=== PATIENT | female | born 1975 | race Caucasian/White ===

== ENCOUNTER 2021-04-19 13:18 | Inpatient (IN) ==
[2021-04-19] MEDS ORDERED: IOPAMIDOL 100 ML BOTTLE IV ONE (13:19)
[2021-04-19] MEDS ORDERED: ONDANSETRON 4 MG/2 ML VIAL IV ONE (14:37)
[2021-04-19] MEDS ORDERED: morphine 2 MG/ML VIAL IV PRN (14:37)
[2021-04-19] MEDS ORDERED: 0.9 % SODIUM CHLORIDE 1,000 ML IV ONE (14:37)
[2021-04-19] MEDS ORDERED: KETOROLAC 30 MG/ML VIAL IV ONE (14:37)
[2021-04-19 15:29] LABS: Hematocrit 34.7 % (36.0-48.0); Hemoglobin 11.7 g/dL (12.0-15.0); Mean Cell Volume 90.4 fL (80.0-100.0); Mean Corpuscular HGB Conc 33.7 g/dL (31.0-36.0); Mean Platelet Volume 10.3 fL (7.4-10.4); Platelet Count 169 K/mcL (140-440); RBC 3.84 M/mcL (4.00-5.20); Red Cell Distribution Width 14.1 % (11.5-14.5); WBC 12.6 K/mcL (4.5-11.0)
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
[2021-04-19 15:46] LABS: ALT/SGPT 23 U/L (<40); AST/SGOT 28 U/L (<32); Albumin 3.3 gm/dL (3.2-5.2); Alkaline Phosphatase 101 U/L (39-117); Bilirubin,Total 0.3 mg/dL (0.1-1.0); Blood Urea Nitrogen 24 mg/dL (6-20); Calcium 8.6 mg/dL (8.6-10.4); Carbon Dioxide 26 mmol/L (22-30); Chloride 88 mmol/L (96-108); Globulin 3.4 gm/dL (2.2-3.7); Glomerular Filtration Rate 29; Glucose 205 mg/dL (70-105)
[2021-04-19 16:02] LABS: Lymphocytes % 3 % (15-49); Monocytes % (Manual) 7 % (1-12); Platelet Estimate NORMAL (Normal); RBC Morphology NORMAL (Normal); Segmented Neutrophils % 90 % (38-78)
--- NOTE | 2021-04-19 16:13 | Cat Scan Report ---
INDICATION: non-specific abdominal pain in a DD patient COMPARISON: Previous examination dated 07/20/2019 TECHNIQUE: Axial images were obtained through the abdomen and pelvis. Sagittally and coronally reformatted images. 80 mL Isovue 370 injected intravenously. Oral contrast material was not administered FINDINGS: Lung bases:Mild bibasilar pulmonary parenchymal density consistent with atelectasis. No parenchymal consolidation. No focal mass. There is no pleural fluid or pericardial fluid Liver:Negative. No focal intrahepatic mass. No focal abnormality. Liver contour is smooth. No evidence for cirrhosis Gallbladder, bilary:No calcified gallstones. No gallbladder wall thickening. No dilated intra or extrahepatic bile ducts. Spleen:No splenomegaly. Normal enhancement of splenic and portal veins. Pancreas:No pancreatic mass. No peripancreatic abnormality Adrenal glands:Negative Kidneys, ureters, bladder: Negative left kidney. No solid or cystic mass. No hydronephrosis. No obstructing or nonobstructing calculi. Right kidney has an abnormal appearance consistent with edema. No focal mass. There is mild perinephric stranding. Appearance is consistent with pyelonephritis. No focal abnormality. No renal or perinephric abscess. There is no obstruction. No hydronephrosis. No calculus. There is no hydroureter. No ureteral stone No bladder calculi or detectable mass Gastrointestinal:No detectable colonic mass. There is no diverticulitis. Small bowel is negative. No mechanical small bowel obstruction. Stomach and duodenum are unremarkable Appendix: The appendix is Vascular:Negative abdominal aorta. There is calcification of the superior mesenteric artery. No detectable stenosis or occlusion. Inferior mesenteric artery is calcified but patent Lymphatic:No retroperitoneal or mesenteric adenopathy Mesentery, peritoneum: No free intraperitoneal fluid. No mesenteric or retroperitoneal mass. No intra-abdominal abscess. Reproductive:Uterus is anteflexed. No adnexal mass Musculoskeletal:No lumbar compression fractures. Sacrum and pelvis are negative. No hip fracture. There is a small inguinal hernia containing mesenteric fat. Hernia measures 1.2 cm in cross-sectional diameter IMPRESSION: 1. Findings consistent with right hilar nephritis. No focal abscess or perinephric abnormality. No hydronephrosis. 2. Small fat-containing umbilical hernia 3. Atherosclerotic calcification 4. Bibasilar pulmonary parenchymal density consistent with atelectasis The exam was performed using radiation dose optimization techniques including, but not limited to, automated exposure control, adjustment of the mA and/or kV according to patient size and use of iterative reconstruction technique. Interpreted and Authenticated by: Herrera Whitfield 04/19/21
[2021-04-19] MEDS ORDERED: cefTRIAXone 1 GM VIAL IV ONE (16:49)
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
[2021-04-19 19:03] LABS: Appearance,Urine CLOUDY (Clear); Bilirubin,Urine Negative (Negative); Color,Urine Yellow; Culture Indicated,Urine yes; Glucose,Urine (UA) Negative (Negative); Ketones,Urine Negative (Negative); Leukocyte Esterase,Urine 250 /ug (Negative); Nitrate,Urine Negative (Negative); Protein,Urine 30 mg/dL (Negative); Specific Gravity,Urine 1.056 (1.000-1.035); Urine Budding Yeast FEW /hpf; Urine RBC 24 /hpf (0-3); Urine Squamous Epithelial Cell 0 /hpf (0-4); Urine WBC 62 /hpf (0-4); Urobilinogen,Urine Negative
[2021-04-19] MEDS ORDERED: POLYETHYLENE GLYCOL 3350 17 GM PACKET PO PRN (19:25)
[2021-04-19] MEDS ORDERED: ACETAMINOPHEN 650 MG/65 ML BAG IV PRN (19:25)
[2021-04-19] MEDS ORDERED: MELATONIN 3 MG TABLET PO PRN (19:25)
[2021-04-19] MEDS ORDERED: POTASSIUM CHLORIDE 40 MEQ in DEXTROSE 5% IN WATER 500 ML IV PRN (19:25)
[2021-04-19] MEDS ORDERED: FAMOTIDINE 20 MG TABLET PO PRN (19:25)
[2021-04-19] MEDS ORDERED: BISACODYL 10 MG SUPP.RECT PR PRN (19:25)
[2021-04-19] MEDS ORDERED: ACETAMINOPHEN W/CODEINE #3 1 TABLET PO PRN (19:25)
[2021-04-19] MEDS ORDERED: DEXTROSE 31 GM ORAL.SUSP PO PRN (19:25)
[2021-04-19] MEDS ORDERED: ONDANSETRON 4 MG/2 ML VIAL IV PRN (19:25)
[2021-04-19] MEDS ORDERED: HYDROmorphone 0.5 MG/0.5 ML SYRINGE IV PRN (19:25)
[2021-04-19] MEDS ORDERED: POTASSIUM CHLORIDE 20 MEQ PACKET PO PRN (19:25)
[2021-04-19] MEDS ORDERED: ONDANSETRON 4 MG ODT TABLET SL PRN (19:25)
[2021-04-19] MEDS ORDERED: DEXTROSE 50% 50 ML VIAL IV PRN (19:25)
[2021-04-19] MEDS ORDERED: MAGNESIUM SULFATE 2 GM/50 ML BAG IV PRN (19:25)
[2021-04-19] MEDS ORDERED: 0.9 % SODIUM CHLORIDE 1,000 ML IV SCH (19:25)
[2021-04-19] MEDS: SENNOSIDES/DOCUSATE SODIUM 1 TAB TABLET PO SCH (21:16)
[2021-04-19] MEDS: DOCUSATE SODIUM 100 MG CAPSULE PO SCH (21:16)
[2021-04-19] MEDS: DIVALPROEX SODIUM 250 MG TABLET PO SCH (21:16)
[2021-04-19] MEDS: HEPARIN 5,000 UNIT/ML VIAL SQ SCH (21:16)
[2021-04-19] MEDS: FLUTICASONE HFA 110MCG INHALER INH SCH (21:17)
[2021-04-19] MEDS: INSULIN LISPRO 1 UNIT/0.01 ML UNIT SQ SCH (21:17)
[2021-04-19] MEDS: 0.9 % SODIUM CHLORIDE 10 ML SYRINGE IV SCH (21:19)
[2021-04-19] MEDS: 0.9 % SODIUM CHLORIDE 1,000 ML IV SCH (21:34)
[2021-04-20] MEDS: 0.9 % SODIUM CHLORIDE 10 ML SYRINGE IV SCH ×3 (05:54→20:47)
[2021-04-20] MEDS: INSULIN LISPRO 1 UNIT/0.01 ML UNIT SQ SCH ×4 (07:37→20:44)
[2021-04-20] MEDS: OMEPRAZOLE 20 MG CAPSULE PO SCH (08:19)
[2021-04-20] MEDS: PIOGLITAZONE 15 MG TABLET PO SCH (08:19)
[2021-04-20] MEDS: DIVALPROEX SODIUM 250 MG TABLET PO SCH ×3 (08:19→20:43)
[2021-04-20] MEDS: LORATADINE 10 MG TABLET PO SCH (08:19)
[2021-04-20] MEDS: ARIPIPRAZOLE 5 MG TABLET PO SCH (08:19)
[2021-04-20] MEDS: sitaGLIPtin 100 MG TABLET PO SCH (08:19)
[2021-04-20] MEDS: MULTIVIT,THER IRON,CA,FA & MIN 1 TABLET PO SCH (08:19)
[2021-04-20] MEDS: ESCITALOPRAM 20 MG TABLET PO SCH (08:19)
[2021-04-20] MEDS: DOCUSATE SODIUM 100 MG CAPSULE PO SCH ×2 (08:20→20:43)
[2021-04-20] MEDS: cefTRIAXone 2 GM in DEXTROSE 5% IN WATER 50 ML IV SCH (08:40)
[2021-04-20] MEDS: HEPARIN 5,000 UNIT/ML VIAL SQ SCH ×2 (08:40→20:43)
[2021-04-20 10:13] LABS: Basophils # (Auto) 0.02 K/mcL (0.00-0.20); Basophils % (Auto) 0.2 % (0.0-2.0); Eosinophils # (Auto) 0.03 K/mcL (0.00-0.70); Eosinophils % (Auto) 0.3 % (0.0-7.0); Hematocrit 36.6 % (36.0-48.0); Lymphocytes % (Auto) 5.6 % (15.0-49.0); Mean Corpuscular HGB Conc 32.8 g/dL (31.0-36.0); Mean Platelet Volume 10.3 fL (7.4-10.4); Monocytes # (Auto) 0.82 K/mcL (0.10-0.90); Monocytes % (Auto) 9.1 % (1.0-12.0); Neutrophils % (Auto) 84.8 % (38.0-78.0); Platelet Count 152 K/mcL (140-440); RBC 3.98 M/mcL (4.00-5.20); Red Cell Distribution Width 14.1 % (11.5-14.5)
[2021-04-20 10:41] LABS: ALT/SGPT 19 U/L (<40); AST/SGOT 25 U/L (<32); Albumin/Globulin Ratio 0.9 (1.0-2.3); Alkaline Phosphatase 120 U/L (39-117); Bilirubin,Direct < 0.2 mg/dL (0-0.3); Bilirubin,Total 0.2 mg/dL (0.1-1.0); Blood Urea Nitrogen 18 mg/dL (6-20); Calcium 8.4 mg/dL (8.6-10.4); Carbon Dioxide 23 mmol/L (22-30); Chloride 89 mmol/L (96-108); Globulin 3.5 gm/dL (2.2-3.7); Glomerular Filtration Rate 38; Glucose 220 mg/dL (70-105); Lactate Dehydrogenase 267 U/L (135-225); Phosphorous 2.2 mg/dL (2.5-4.5); Triglycerides 182 mg/dL (<150); Uric Acid 4.1 mg/dL (2.5-8.0)
[2021-04-20] MEDS ORDERED: NEUTRA PHOS 1 PACKET PO PRN (10:52)
[2021-04-20] MEDS: FLUTICASONE HFA 110MCG INHALER INH SCH ×2 (12:04→20:43)
--- NOTE | 2021-04-20 12:24 | Internal Med Progress Note ---
SUBJECTIVE Subjective Patient information: Note initiated : 04/20/21 at 12:17 pm Service Date, if different from initiated Date: [] Patient: Inés Gardner a 45 y/o F admitted on 04/19/21 for Abdominal Pain. Chief Complaint: [] Interval history: History of present illness: Ms. Gardner is a 45 year old F with a history of developmental delay/DM type II, recurrent UTIs who lives along with her roommate and receives caregiver help from an agency. She has been doing well until last Thursday started experiencing weakness along with abdominal pain for which she was evaluated at PCP office. After initial work-up she was discharged on Bactrim. Her symptoms continue to get worse with increasing weakness, fever abdominal pain and was directed by PCP office again to the ER today. Initial work-up was consistent with acute pyelonephritis on imaging. Elevated creatinine at 2. Elevated white count/fever 101/sodium 127. Hospital service was consulted for admission. At the time of my evaluation patient is aler and able to answer most the questi on. Her abdominal discomfort is improved. She endorsed history as above. She is a poor historian in the background setting of developmental mental delay. She however denies diarrhea, chest pain, lightheadedness, dizziness, cough 6/5-patient doing well. No overnight events. No concerns per staff. Abdominal pain much improved. Resting comfortably. On antibiotic coverage. Improved sepsis/endorgan dysfunction including downtrending creatinine at 1.4.White count 9 sodium 124, urine cultures pending. Constitutional Vitals: Vital Signs Temp Pulse Resp BP Pulse Ox 98.7 F 93 H 16 113/72 93 04/20/21 11:47 04/20/21 11:47 04/20/21 11:47 04/20/21 11:47 04/20/21 11:47 Period Temp Pulse Resp BP Sys/[place] Pulse Ox Last 24 Hr 97.5 F-99.2 F 76-99 16-18 97-142/65-107 90-98 Intake and Output 04/19/21 04/20/21 04/20/21 21:59 05:59 13:59 Intake Total 1000 120 480 Output Total 1100 1200 Balance 1000 -980 -720 Weight 107.275 kg 107.275 kg Patient Weight 04/21/21 05:59 Weight 107.275 kg alert, nonlabored breathing, no anxiety, nontender nondistended abdomen Intake & Output: Intake & Output 04/19/21 04/20/21 04/20/21 21:59 05:59 13:59 Intake Total 1000 120 480 Output Total 1100 1200 Balance 1000 -980 -720 Weight 107.275 kg 107.275 kg Intake: IV 1000 Sodium Chloride 0.9% 1,000 ml @ 1000 Wide Open IV [facility] Rx#: [id number] Oral 120 480 Output: Void Amount 1100 800 Urine/Stool Mix 400 Other: Meal Breakfast Percent of Meal Consumed bites Feeding Ability Assist with Tray Set Up Urine Appearance Cloudy Cloudy Urine Color Dark Yellow Bright Yellow Urine Odor Strong Stool Size Moderate Stool Color Brown Stool Consistency Soft Formed # Bowel Movements 2 # of times incontinent of 1 Bowels OBJ DATA Labs CBC & Chem 7: 04/20/21 09:26 04/20/21 09:26 Labs: Abnormal Lab Results 04/20/21 04/20/21 04/20/21 09:26 09:26 09:26 WBC RBC 3.98 L Hgb Hct Neut % (Auto) 84.8 H Lymph % (Auto) 5.6 L Lymph # (Auto) 0.50 L Seg Neutrophils % Lymphocytes % Sodium 124 L Chloride 89 L BUN Creatinine 1.6 H Glucose 220 H Osmolality 278 L Calcium 8.4 L Phosphorus 2.2 L GGT 40 H Alkaline Phosphatase 120 H Lactate Dehydrogenase 267 H Albumin 3.0 L Albumin/Globulin Ratio 0.9 L Triglycerides 182 H Urine Appearance Urine Protein Ur Leukocyte Esterase Urine RBC Urine WBC Urine Yeast (Budding) 04/19/21 04/19/21 04/19/21 17:58 14:52 14:52 WBC 12.6 H RBC 3.84 L Hgb 11.7 L Hct 34.7 L Neut % (Auto) Lymph % (Auto) Lymph # (Auto) Seg Neutrophils % 90 H Lymphocytes % 3 L Sodium 127 L Chloride 88 L BUN 24 H Creatinine 2.0 H Glucose 205 H Osmolality Calcium Phosphorus GGT Alkaline Phosphatase Lactate Dehydrogenase Albumin Albumin/Globulin Ratio Triglycerides Urine Appearance Cloudy A Urine Protein 30 A Ur Leukocyte Esterase 250 A Urine RBC 24 H Urine WBC 62 H Urine Yeast (Budding) Few A Meds: Medications Acetaminophen (Acetaminophen 325 Mg Tablet) 650 mg PO Q6HP PRN PRN Reason: PAIN/FEVER > 101 Acetaminophen/Codeine Phosphate (Acetaminophen W/Codeine #3 1 Tablet) 2 tab PO Q6H PRN; Protocol PRN Reason: Pain Bisacodyl (Bisacodyl 10 Mg Supp.Rect) 10 mg [place] Q2-3DAYS PRN PRN Reason: Constipation Dextrose (Dextrose 50% 50 Ml Vial) 0 ml IV UD PRN PRN Reason: Hypoglycemia Diagnostic Test (Pha) (Accu-Chek 1 Each Strip) 1 each FS ACHS COUNT INCLUDES THE [facility] Last Admin: 04/20/21 12:04 Dose: 1 each Documented by: Divalproex Sodium (Divalproex Sodium 250 Mg Tablet) 250 mg PO TID COUNT INCLUDES THE [facility] Last Admin: 04/20/21 08:19 Dose: 250 mg Documented by: Docusate Sodium (Docusate Sodium 100 Mg Capsule) 100 mg PO BID COUNT INCLUDES THE [facility] Last Admin: 04/20/21 08:20 Dose: 100 mg Documented by: Escitalopram Oxalate (Escitalopram 20 Mg Tablet) 20 mg PO DAILY COUNT INCLUDES THE [facility] Last Admin: 04/20/21 08:19 Dose: 20 mg Documented by: Famotidine (Famotidine 20 Mg Tablet) 20 mg PO QHS PRN PRN Reason: Acid Reflux Fluticasone Propionate (Fluticasone Hfa 110mcg Inhaler) 1 puff INH BID COUNT INCLUDES THE [facility] Last Admin: 04/20/21 12:04 Dose: Not Given Documented by: Glucose (Dextrose 31 Gm Oral.Susp) 15 gm PO PRN PRN PRN Reason: Hypoglycemia Heparin Sodium (Porcine) (Heparin 5,000 Unit/Ml Vial) 5,000 unit SQ Q12 COUNT INCLUDES THE [facility] Last Admin: 04/20/21 08:40 Dose: 5,000 unit Documented by: Hydromorphone HCl (Hydromorphone 0.5 Mg/0.5 Ml Syringe) 0.25 - 0.5 mg IV Q4HP PRN; Protocol PRN Reason: Per Pain Protocol Acetaminophen (Ofirmev) 650 mg in 65 mls @ 130 mls/hr IV Q6HP PRN; Protocol PRN Reason: Per Pain Protocol/Fever > 101 Potassium Chloride 40 meq/ (Dextrose) 520 mls @ 130 mls/hr IV UD PRN PRN Reason: K+ = or < 3.5 Magnesium Sulfate (Magnesium Sulfate) 2 gm in 50 mls @ 50 mls/hr IV UD PRN PRN Reason: MG = or < 1.7 Sodium Chloride (Sodium Chloride 0.9%) 1,000 mls @ 50 mls/hr IV .Q20H COUNT INCLUDES THE [facility] Stop: 04/22/21 07:24 Last Admin: 04/19/21 21:34 Dose: 50 mls/hr Documented by: Sodium Chloride (Sodium Chloride 0.9%) 1,000 mls @ 0 mls/hr IV BOLUS COUNT INCLUDES THE [facility] Last Admin: 04/19/21 21:20 Dose: Not Given Documented by: Ceftriaxone Sodium 2 gm/ (Dextrose) 50 mls @ 100 mls/hr IV Q24H COUNT INCLUDES THE [facility]; Protocol Last Admin: 04/20/21 08:40 Dose: 100 mls/hr Documented by: Insulin Human Lispro (Insulin Lispro 1 Unit/0.01 Ml Unit) 0 unit SQ ACHS COUNT INCLUDES THE [facility]; Protocol Last Admin: 04/20/21 12:03 Dose: Not Given Documented by: Iron Carb/Multivit/Mushroom Grower/Folic Acid (Multivit,Ther Iron,Ca,Fa & Min 1 Tablet) 1 tab PO DAILY COUNT INCLUDES THE [facility] Last Admin: 04/20/21 08:19 Dose: 1 tab Documented by: Loratadine (Loratadine 10 Mg Tablet) 10 mg PO DAILY COUNT INCLUDES [facility] Last Admin: 04/20/21 08:19 Dose: 10 mg Documented by: Melatonin (Melatonin 3 Mg Tablet) 3 mg PO HSP PRN PRN Reason: Insomnia Omeprazole (Omeprazole 20 Mg Capsule) 40 mg PO DAILY COUNT INCLUDES [facility] Last Admin: 04/20/21 08:19 Dose: 40 mg Documented by: Ondansetron HCl (Ondansetron 4 Mg Odt Tablet) 4 mg SL Q4-6HP PRN; Protocol PRN Reason: Nausea And Vomiting Ondansetron HCl (Ondansetron 4 Mg/2 Ml Vial) 4 mg IV Q4-6HP PRN; Protocol PRN Reason: Nausea And Vomiting Pioglitazone HCl (Pioglitazone 15 Mg Tablet) 30 mg PO DAILY COUNT INCLUDES THE [facility] Last Admin: 04/20/21 08:19 Dose: 30 mg Documented by: Polyethylene Glycol (Polyethylene Glycol 3350 17 Gm Packet) 17 gm PO DAILYP PRN PRN Reason: Constipation Potassium Chloride (Potassium Chloride 20 Meq Packet) 40 meq PO DAILYP PRN PRN Reason: K+ < 3.5 Potassium/Phosphorus/Sodium (Neutra Phos 1 Packet) 2 packet PO DAILY PRN PRN Reason: PHOS <2.5 Last Admin: 04/20/21 12:03 Dose: 2 packet Documented by: Senna/Docusate Sodium (Sennosides/Docusate Sodium 1 Tab Tablet) 1 tab PO HS COUNT INCLUDES THE [facility] Last Admin: 04/19/21 21:16 Dose: 1 tab Documented by: Sitagliptin Phosphate (Sitagliptin 100 Mg Tablet) 100 mg PO QDAY COUNT INCLUDES THE [facility] Last Admin: 04/20/21 08:19 Dose: 100 mg Documented by: Sodium Chloride (0.9 % Sodium Chloride 10 Ml Syringe) 10 ml IV Q8 COUNT INCLUDES THE [facility] Last Admin: 04/20/21 05:54 Dose: Not Given Documented by: A/P Narrative A/P Narrative: * Severe sepsis with endorgan dysfunction-clinically improving with management per guidelines, improved endorgan dysfunction * A/c right pyelonephritis-continue antibiotic coverage and de-escalate based on sensitivities. * JAYME, secondary to sepsis endorgan dysfunction, creatinine downtrending. Avoid nephrotoxin * hyponatremia-127-> 124. Await urine serum osmolarity. Free water restriction. * Abd pain-on as needed opioids * DM II-continue CC diet/sliding scale insulin/sitagliptin * Anxiety disorder continue escitalopram/Depakote * Dev Delay with ataxia-fall risk * Full code Plan * De-escalate antibiotics based on culture sensitivities * Pre-existing medical mission management as above * Monitor renal function, avoid nephrotoxins * PT OT nutrition support Time Spent With Patient Time: Total time spent is greater than 50% in coordination of care (as documented) at patient's floor/unit and/or counseling patient: QUALITY VTE Deep Vein Thrombosis/Pulmonary Embolism Present on Admission: No
[2021-04-20 13:24] LABS: Sodium, Urine Random 10 mmol/L
[2021-04-20 13:29] LABS: Osmolality,Urine 444 mOSM/kg (80-1000)
[2021-04-20] MEDS: ACETAMINOPHEN 325 MG TABLET PO PRN (15:23)
[2021-04-20] MEDS: 0.9 % SODIUM CHLORIDE 1,000 ML IV SCH (18:37)
[2021-04-20] MEDS: SENNOSIDES/DOCUSATE SODIUM 1 TAB TABLET PO SCH (20:47)
[2021-04-21] MEDS: 0.9 % SODIUM CHLORIDE 10 ML SYRINGE IV SCH ×3 (04:06→20:37)
[2021-04-21] MEDS: INSULIN LISPRO 1 UNIT/0.01 ML UNIT SQ SCH ×4 (08:07→20:38)
[2021-04-21 08:23] LABS: Basophils # (Auto) 0.01 K/mcL (0.00-0.20); Basophils % (Auto) 0.1 % (0.0-2.0); Eosinophils # (Auto) 0.04 K/mcL (0.00-0.70); Eosinophils % (Auto) 0.5 % (0.0-7.0); Hematocrit 31.9 % (36.0-48.0); Hemoglobin 10.6 g/dL (12.0-15.0); Lymphocytes % (Auto) 10.9 % (15.0-49.0); Mean Cell Volume 89.9 fL (80.0-100.0); Mean Corpuscular HGB Conc 33.2 g/dL (31.0-36.0); Mean Platelet Volume 9.6 fL (7.4-10.4); Monocytes # (Auto) 1.57 K/mcL (0.10-0.90); Monocytes % (Auto) 18.9 % (1.0-12.0); Neutrophils % (Auto) 69.6 % (38.0-78.0); Platelet Count 168 K/mcL (140-440); RBC 3.55 M/mcL (4.00-5.20); Red Cell Distribution Width 14.4 % (11.5-14.5); WBC 8.3 K/mcL (4.5-11.0)
[2021-04-21 08:24] LABS: ALT/SGPT 17 U/L (<40); AST/SGOT 21 U/L (<32); Albumin 2.5 gm/dL (3.2-5.2); Albumin/Globulin Ratio 0.8 (1.0-2.3); Alkaline Phosphatase 113 U/L (39-117); Bilirubin,Direct < 0.2 mg/dL (0-0.3); Bilirubin,Total 0.2 mg/dL (0.1-1.0); Blood Urea Nitrogen 14 mg/dL (6-20); Calcium 8.4 mg/dL (8.6-10.4); Carbon Dioxide 26 mmol/L (22-30); Chloride 98 mmol/L (96-108); Globulin 3.2 gm/dL (2.2-3.7); Glomerular Filtration Rate 54; Glucose 123 mg/dL (70-105); Lactate Dehydrogenase 219 U/L (135-225); Phosphorous 2.9 mg/dL (2.5-4.5); Triglycerides 140 mg/dL (<150); Uric Acid 3.8 mg/dL (2.5-8.0)
[2021-04-21] MEDS: HEPARIN 5,000 UNIT/ML VIAL SQ SCH ×2 (09:02→20:36)
[2021-04-21] MEDS: sitaGLIPtin 100 MG TABLET PO SCH (09:03)
[2021-04-21] MEDS: DIVALPROEX SODIUM 250 MG TABLET PO SCH ×3 (09:03→20:36)
[2021-04-21] MEDS: MULTIVIT,THER IRON,CA,FA & MIN 1 TABLET PO SCH (09:03)
[2021-04-21] MEDS: ARIPIPRAZOLE 5 MG TABLET PO SCH (09:03)
[2021-04-21] MEDS: OMEPRAZOLE 20 MG CAPSULE PO SCH (09:03)
[2021-04-21] MEDS: PIOGLITAZONE 15 MG TABLET PO SCH (09:04)
[2021-04-21] MEDS: LORATADINE 10 MG TABLET PO SCH (09:04)
[2021-04-21] MEDS: DOCUSATE SODIUM 100 MG CAPSULE PO SCH ×2 (09:04→20:37)
[2021-04-21] MEDS: ESCITALOPRAM 20 MG TABLET PO SCH (09:04)
--- NOTE | 2021-04-21 10:07 | XRay Report ---
INDICATION: Patient choked on breakfast TECHNIQUE: PA and lateral upright chest x-ray COMPARISON: Chest x-rays dated 04/28/2020, 12/08/2018 FINDINGS: Lungs: Lungs are negative. No focal pulmonary parenchymal infiltrate or mass Heart, vascular: No significant cardiomegaly. Pulmonary vascularity is normal. No pulmonary edema or pulmonary congestion Mediastinum, lorin: No mediastinal widening. No hilar mass Pleura:No pleural fluid. No pleural-based mass or calcification Thoracic spine, ribs: No thoracic compression fracture. Ribs are negative. No fracture. No lytic lesion IMPRESSION: 1. Negative AP and lateral chest x-ray 2. No interval change Interpreted and Authenticated by: Herrera Whitfield 04/21/21
--- NOTE | 2021-04-21 11:37 | Internal Med Progress Note ---
SUBJECTIVE Subjective Patient information: Note initiated : 04/21/21 at 11:33 am Service Date, if different from initiated Date: [] Patient: Inés Gardner a 45 y/o F admitted on 04/19/21 for Abdominal Pain. Chief Complaint: [] Interval history: History of present illness: Ms. Gardner is a 45 year old F with a history of developmental delay/DM type II, recurrent UTIs who lives along with her roommate and receives caregiver help from an agency. She has been doing well until last Thursday started experiencing weakness along with abdominal pain for which she was evaluated at PCP office. After initial work-up she was discharged on Bactrim. Her symptoms continue to get worse with increasing weakness, fever abdominal pain and was directed by PCP office again to the ER today. Initial work-up was consistent with acute pyelonephritis on imaging. Elevated creatinine at 2. Elevated white count/fever 101/sodium 127. Hospital service was consulted for admission. At the time of my evaluation patient is aler and able to answer most the questi on. Her abdominal discomfort is improved. She endorsed history as above. She is a poor historian in the background setting of developmental mental delay. She however denies diarrhea, chest pain, lightheadedness, dizziness, cough 04/20-patient doing well. No overnight events. No concerns per staff. Abdominal pain much improved. Resting comfortably. On antibiotic coverage. Improved sepsis/endorgan dysfunction including downtrending creatinine at 1.4.White count 9 sodium 124, urine cultures pending. 04/21-patient clinically improving. No overnight events. This morning choked on x-rays. X-ray no evident aspiration or pneumonia. Transition to oral antibiotics. Cultures pending so far. Target total of 14 days antibiotics through 05/02. Anticipate discharge in 24 hours. Constitutional Vitals: Vital Signs Temp Pulse Resp BP Pulse Ox 98.5 F 89 18 134/73 92 04/21/21 07:47 04/21/21 07:47 04/21/21 07:47 04/21/21 07:47 04/21/21 07:47 Period Temp Pulse Resp BP Sys/[place] Pulse Ox Last 24 Hr 98.5 F-99.1 F 66-103 16-26 113-144/70-76 90-95 Intake and Output 04/20/21 04/21/2104/21/21 21:59 05:59 13:59 Intake Total 1240 390 120 Output Total 350 1200 Balance 890 -810 120 Weight 109.996 kg alert and cooperative No anxiety Nonlabored breathing No lymphedema Intake & Output: Intake & Output 04/20/21 04/21/21 04/21/21 21:59 05:59 13:59 Intake Total 1240 390 120 Output Total 350 1200 Balance 890 -810 120 Weight 109.996 kg Intake: IV 1000 Sodium Chloride 0.9% 1,000 ml @ 1000 50 mls/hr IV .Q20H [facility] Rx#: [id number] Oral 240 390 120 Output: Void Amount 350 1200 Other: Meal Dinner Breakfast Percent of Meal Consumed 75% 25% Urine Appearance Clear Cloudy Urine Color Bright Yellow Dark Yellow Urine Odor Normal Stool Size Moderate Stool Color Brown Stool Consistency Soft Formed OBJ DATA Labs CBC & Chem 7: 04/21/21 05:45 04/21/21 05:45 Labs: Abnormal Lab Results 04/21/21 04/21/21 04/20/21 05:45 05:45 09:26 WBC RBC 3.55 L Hgb 10.6 L Hct 31.9 L Neut % (Auto) Lymph % (Auto) 10.9 L [place] % (Auto) 18.9 H Lymph # (Auto) 0.90 L [place] # (Auto) 1.57 H Seg Neutrophils % Lymphocytes % Sodium 131 L Chloride Anion Gap 7.0 L BUN Creatinine 1.2 H Glucose 123 H Osmolality 278 L Calcium 8.4 L Phosphorus GGT 45 H Alkaline Phosphatase Lactate Dehydrogenase Total Protein 5.7 L Albumin 2.5 L Albumin/Globulin Ratio 0.8 L Triglycerides Urine Appearance Urine Protein Ur Leukocyte Esterase Urine RBC Urine WBC Urine Yeast (Budding) 04/20/21 04/20/21 04/19/21 09:26 09:26 17:58 WBC RBC 3.98 L Hgb Hct Neut % (Auto) 84.8 H Lymph % (Auto) 5.6 L [place] % (Auto) Lymph # (Auto) 0.50 L [place] # (Auto) Seg Neutrophils % Lymphocytes % Sodium 124 L Chloride 89 L Anion Gap BUN Creatinine 1.6 H Glucose 220 H Osmolality Calcium 8.4 L Phosphorus 2.2 L GGT 40 H Alkaline Phosphatase 120 H Lactate Dehydrogenase 267 H Total Protein Albumin 3.0 L Albumin/Globulin Ratio 0.9 L Triglycerides 182 H Urine Appearance Cloudy A Urine Protein 30 A Ur Leukocyte Esterase 250 A Urine RBC 24 H Urine WBC 62 H Urine Yeast (Budding) Few A 04/19/21 04/19/21 14:52 14:52 WBC 12.6 H RBC 3.84 L Hgb 11.7 L Hct 34.7 L Neut % (Auto) Lymph % (Auto) [place] % (Auto) Lymph # (Auto) [place] # (Auto) Seg Neutrophils % 90 H Lymphocytes % 3 L Sodium 127 L Chloride 88 L Anion Gap BUN 24 H Creatinine 2.0 H Glucose 205 H Osmolality Calcium Phosphorus GGT Alkaline Phosphatase Lactate Dehydrogenase Total Protein Albumin Albumin/Globulin Ratio Triglycerides Urine Appearance Urine Protein Ur Leukocyte Esterase Urine RBC Urine WBC Urine Yeast (Budding) Meds: Medications Acetaminophen (Acetaminophen 325 Mg Tablet) 650 mg PO Q6HP PRN PRN Reason: PAIN/FEVER > 101 Last Admin: 04/20/21 15:23 Dose: 650 mg Documented by: Acetaminophen/Codeine Phosphate (Acetaminophen W/Codeine #3 1 Tablet) 2 tab PO Q6H PRN; Protocol PRN Reason: Pain Bisacodyl (Bisacodyl 10 Mg Supp.Rect) 10 mg [place] Q2-3DAYS PRN PRN Reason: Constipation Dextrose (Dextrose 50% 50 Ml Vial) 0 ml IV UD PRN PRN Reason: Hypoglycemia Diagnostic Test (Pha) (Accu-Chek 1 Each Strip) 1 each FS ACHS [facility] Last Admin: 04/21/21 08:07 Dose: 1 each Documented by: Divalproex Sodium (Divalproex Sodium 250 Mg Tablet) 250 mg PO TID [facility] Last Admin: 04/21/21 09:03 Dose: 250 mg Documented by: Docusate Sodium (Docusate Sodium 100 Mg Capsule) 100 mg PO BID [facility] Last Admin: 04/21/21 09:04 Dose: 100 mg Documented by: Escitalopram Oxalate (Escitalopram 20 Mg Tablet) 20 mg PO DAILY [facility] Last Admin: 04/21/21 09:04 Dose: 20 mg Documented by: Famotidine (Famotidine 20 Mg Tablet) 20 mg PO QHS PRN PRN Reason: Acid Reflux Fluticasone Propionate (Fluticasone Hfa 110mcg Inhaler) 1 puff INH BID [facility] Last Admin: 04/20/21 20:43 Dose: Not Given Documented by: Glucose (Dextrose 31 Gm Oral.Susp) 15 gm PO PRN PRN PRN Reason: Hypoglycemia Heparin Sodium (Porcine) (Heparin 5,000 Unit/Ml Vial) 5,000 unit SQ Q12 [facility] Last Admin: 04/21/21 09:02 Dose: 5,000 unit Documented by: Hydromorphone HCl (Hydromorphone 0.5 Mg/0.5 Ml Syringe) 0.25 - 0.5 mg IV Q4HP PRN; Protocol PRN Reason: Per Pain Protocol Acetaminophen (Ofirmev) 650 mg in 65 mls @ 130 mls/hr IV Q6HP PRN; Protocol PRN Reason: Per Pain Protocol/Fever > 101 Potassium Chloride 40 meq/ (Dextrose) 520 mls @ 130 mls/hr IV UD PRN PRN Reason: K+ = or < 3.5 Magnesium Sulfate (Magnesium Sulfate) 2 gm in 50 mls @ 50 mls/hr IV UD PRN PRN Reason: MG = or < 1.7 Sodium Chloride (Sodium Chloride 0.9%) 1,000 mls @ 50 mls/hr IV .Q20H [facility] Stop: 04/22/21 07:24 Last Admin: 04/20/21 18:37 Dose: 50 mls/hr Documented by: Ceftriaxone Sodium 2 gm/ (Dextrose) 50 mls @ 100 mls/hr IV Q24H [facility]; Protocol Last Infusion: 04/20/21 09:10 Dose: Infused Documented by: Insulin Human Lispro (Insulin Lispro 1 Unit/0.01 Ml Unit) 0 unit SQ ACHS [facility]; Protocol Last Admin: 04/21/21 08:07 Dose: 1 units Documented by: Iron Carb/Multivit/Dimension Quarry Supervisor/Folic Acid (Multivit,Ther Iron,Ca,Fa & Min 1 Tablet) 1 tab PO DAILY [facility] Last Admin: 04/21/21 09:03 Dose: 1 tab Documented by: Loratadine (Loratadine 10 Mg Tablet) 10 mg PO DAILY [facility] Last Admin: 04/21/21 09:04 Dose: 10 mg Documented by: Melatonin (Melatonin 3 Mg Tablet) 3 mg PO HSP PRN PRN Reason: Insomnia Omeprazole (Omeprazole 20 Mg Capsule) 40 mg PO DAILY [facility] Last Admin: 04/21/21 09:03 Dose: 40 mg Documented by: Ondansetron HCl (Ondansetron 4 Mg Odt Tablet) 4 mg SL Q4-6HP PRN; Protocol PRN Reason: Nausea And Vomiting Ondansetron HCl (Ondansetron 4 Mg/2 Ml Vial) 4 mg IV Q4-6HP PRN; Protocol PRN Reason: Nausea And Vomiting Pioglitazone HCl (Pioglitazone 15 Mg Tablet) 30 mg PO DAILY [facility] Last Admin: 04/21/21 09:04 Dose: 30 mg Documented by: Polyethylene Glycol (Polyethylene Glycol 3350 17 Gm Packet) 17 gm PO DAILYP PRN PRN Reason: Constipation Potassium Chloride (Potassium Chloride 20 Meq Packet) 40 meq PO DAILYP PRN PRN Reason: K+ < 3.5 Potassium/Phosphorus/Sodium (Neutra Phos 1 Packet) 2 packet PO DAILY PRN PRN Reason: PHOS <2.5 Last Admin: 04/20/21 12:03 Dose: 2 packet Documented by: Senna/Docusate Sodium (Sennosides/Docusate Sodium 1 Tab Tablet) 1 tab PO HS [facility] Last Admin: 04/20/21 20:47 Dose: Not Given Documented by: Sitagliptin Phosphate (Sitagliptin 100 Mg Tablet) 100 mg PO QDAY [facility] Last Admin: 04/21/21 09:03 Dose: 100 mg Documented by: Sodium Chloride (0.9 % Sodium Chloride 10 Ml Syringe) 10 ml IV Q8 [facility] Last Admin: 04/21/21 04:06 Dose: Not Given Documented by: A/P Narrative A/P Narrative: * Severe sepsis with endorgan dysfunction-White count normalized. Clinical resolution noted on antibiotic coverage. * A/c right pyelonephritis-continue antibiotic coverage through 05/02 * JAYME, secondary to sepsis endorgan dysfunction, creatinine down from 2-1.2 * SIADH/hyponatremia with elevated urine osmolality at 444. Sodium 127-> 124- >131. 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 Continue therapies as tolerated * Full code Plan * Transition to oral antibiotics to continue 05/02 * Pre-existing medical condition management as above * Free water restriction to 1.5 L a day * PT OT nutrition support Time Spent With Patient Time: Total time spent is greater than 50% in coordination of care (as documented) at patient's floor/unit and/or counseling patient: QUALITY VTE Deep Vein Thrombosis/Pulmonary Embolism Present on Admission: No
[2021-04-21] MEDS: cefTRIAXone 2 GM in DEXTROSE 5% IN WATER 50 ML IV SCH (12:24)
[2021-04-21] MEDS: FLUTICASONE HFA 110MCG INHALER INH SCH ×2 (12:24→20:39)
[2021-04-21] MEDS: 0.9 % SODIUM CHLORIDE 1,000 ML IV SCH (12:26)
[2021-04-21] MEDS: SENNOSIDES/DOCUSATE SODIUM 1 TAB TABLET PO SCH (20:37)
[2021-04-22] MEDS: ACETAMINOPHEN 325 MG TABLET PO PRN ×3 (00:12→21:42)
[2021-04-22] MEDS: 0.9 % SODIUM CHLORIDE 10 ML SYRINGE IV SCH ×3 (04:00→21:43)
[2021-04-22] MEDS: INSULIN LISPRO 1 UNIT/0.01 ML UNIT SQ SCH ×4 (07:17→21:43)
[2021-04-22 07:41] LABS: Basophils # (Auto) 0.03 K/mcL (0.00-0.20); Basophils % (Auto) 0.3 % (0.0-2.0); Eosinophils # (Auto) 0.08 K/mcL (0.00-0.70); Eosinophils % (Auto) 0.8 % (0.0-7.0); Hematocrit 32.9 % (36.0-48.0); Lymphocytes # (Auto) 1.68 K/mcL (1.50-4.80); Lymphocytes % (Auto) 16.2 % (15.0-49.0); Mean Cell Volume 90.6 fL (80.0-100.0); Mean Corpuscular HGB Conc 33.4 g/dL (31.0-36.0); Monocytes # (Auto) 1.49 K/mcL (0.10-0.90); Monocytes % (Auto) 14.4 % (1.0-12.0); Neutrophils % (Auto) 68.3 % (38.0-78.0); Platelet Count 197 K/mcL (140-440); RBC 3.63 M/mcL (4.00-5.20); Red Cell Distribution Width 14.7 % (11.5-14.5); WBC 10.4 K/mcL (4.5-11.0)
[2021-04-22 07:57] LABS: ALT/SGPT 16 U/L (<40); AST/SGOT 16 U/L (<32); Albumin 2.8 gm/dL (3.2-5.2); Albumin/Globulin Ratio 0.8 (1.0-2.3); Alkaline Phosphatase 125 U/L (39-117); Bilirubin,Direct < 0.2 mg/dL (0-0.3); Bilirubin,Total 0.2 mg/dL (0.1-1.0); Blood Urea Nitrogen 13 mg/dL (6-20); Calcium 8.7 mg/dL (8.6-10.4); Carbon Dioxide 29 mmol/L (22-30); Chloride 98 mmol/L (96-108); Globulin 3.6 gm/dL (2.2-3.7); Glomerular Filtration Rate 68; Glucose 114 mg/dL (70-105); Lactate Dehydrogenase 229 U/L (135-225); Phosphorous 3.2 mg/dL (2.5-4.5); Triglycerides 153 mg/dL (<150); Uric Acid 3.9 mg/dL (2.5-8.0)
[2021-04-22] MEDS: sitaGLIPtin 100 MG TABLET PO SCH (08:54)
[2021-04-22] MEDS: LORATADINE 10 MG TABLET PO SCH (08:54)
[2021-04-22] MEDS: ESCITALOPRAM 20 MG TABLET PO SCH (08:54)
[2021-04-22] MEDS: MULTIVIT,THER IRON,CA,FA & MIN 1 TABLET PO SCH (08:54)
[2021-04-22] MEDS: OMEPRAZOLE 20 MG CAPSULE PO SCH (08:54)
[2021-04-22] MEDS: DIVALPROEX SODIUM 250 MG TABLET PO SCH ×3 (08:54→21:42)
[2021-04-22] MEDS: FLUTICASONE HFA 110MCG INHALER INH SCH ×2 (08:55→21:43)
[2021-04-22] MEDS: PIOGLITAZONE 15 MG TABLET PO SCH (08:55)
[2021-04-22] MEDS: ARIPIPRAZOLE 5 MG TABLET PO SCH (08:55)
[2021-04-22] MEDS: HEPARIN 5,000 UNIT/ML VIAL SQ SCH ×2 (08:55→21:43)
[2021-04-22] MEDS: DOCUSATE SODIUM 100 MG CAPSULE PO SCH ×2 (08:55→21:51)
[2021-04-22] MEDS: cefTRIAXone 2 GM in DEXTROSE 5% IN WATER 50 ML IV SCH (08:56)
--- NOTE | 2021-04-22 11:48 | Discharge Summary ---
Discharge Provider Provider Patient information: Note initiated : 04/22/21 at 11:45 am Service Date, if different from initiated Date: [] Patient: Inés Gardner a 45 y/o F admitted on 04/19/21 for Abdominal Pain. Discharge diagnosis * Severe sepsis with endorgan dysfunction-secondary to acute pyonephritis. Clinically improved. White count normalized. Continue additional 10 days of oral third-generation cephalosporin * A/c right pyelonephritis-continue antibiotic coverage through 05/02 * JAYME, secondary to sepsis endorgan dysfunction, creatinine down from 2-1.2->1 * SIADH/hyponatremia with elevated urine osmolality at 444. Sodium 127-> 124->131->136. 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 Gardner is a 45 year old F with a history of developmental delay/DM type II, recurrent UTIs who lives along with her roommate and receives caregiver help from an agency. She has been doing well until last Thursday started experiencing weakness along with abdominal pain for which she was evaluated at PCP office. After initial work-up she was discharged on Bactrim. Her symptoms continue to get worse with increasing weakness, fever abdominal pain and was directed by PCP office again to the ER today. Initial work-up was consistent with acute pyelonephritis on imaging. Elevated creatinine at 2. Elevated white count/fever 101/sodium 127. Hospital service was consulted for admission. At the time of my evaluation patient is aler and able to answer most the question. Her abdominal discomfort is improved. She endorsed history as above. She is a poor historian in the background setting of developmental mental delay. She however denies diarrhea, chest pain, lightheadedness, dizziness, cough 04/20-patient doing well. No overnight events. No concerns per staff. Abdominal pain much improved. Resting comfortably. On antibiotic coverage. Improved sepsis/endorgan dysfunction including downtrending creatinine at 1.4.White count 9 sodium 124, urine cultures pending. 04/21-patient clinically improving. No overnight events. This morning choked on x-rays. X-ray no evident aspiration or pneumonia. Transition to oral antibiotics. Cultures pending so far. Target total of 14 days antibiotics through 05/02. Anticipate discharge in 24 hours. 04/22-patient doing a lot better. No overnight events. Sodium 136, potassium 3.6, creatinine down to 1. White count normalized. Negative cultures so far. All pain resolved. Continue additional 10 days oral third-generation cephalosporin for acute pyelonephritis. Anticipate discharge in 24 hours 04/23-patient doing well. Discharging to assisted living on additional 9 days antibiotics. Patient doing well. No overnight events. White count stable. Discharging with advised as below Date of admission: 04/19/21 19:18 Discharge date: 04/22/21 Primary care physician: Gabriel Cole Consults: 04/19/21 Consult to Physician [CONS] Stat Comment: Consulting Provider: Adriano Singh Reason For Exam: Physician to Consult Discharge Meds Discharge Medications Home Medications divalproex 250 mg .ROUTE TID 02/08/16 [History Confirmed 04/19/21 Last Taken Unknown] omeprazole 40 mg PO DAILY 02/08/16 [History Confirmed 04/19/21 Last Taken Unknown] fluticasone propionate 110 mcg NARES BID 02/24/16 [History Confirmed 04/19/21 Last Taken Unknown] loratadine 10 mg PO DAILY 02/24/16 [History Confirmed 04/19/21 Last Taken Unknown] pioglitazone 30 mg PO DAILY 02/24/16 [History Confirmed 04/19/21 Last Taken Unknown] acetaminophen 650 mg PO Q6HP PRN #30 tab 04/28/20 [Rx Confirmed 04/19/21 Last Taken Unknown] aripiprazole 5 mg PO QDAY 04/28/20 [History Confirmed 04/19/21 Last Taken Unknown] escitalopram oxalate 20 mg PO DAILY 04/28/20 [History Confirmed 04/19/21 Last Taken Unknown] Januvia 100 mg PO QDAY 04/19/21 [History Confirmed 04/19/21 Last Taken Unknown] acetaminophen-codeine 2 tab PO Q6H PRN 04/19/21 [History Confirmed 04/19/21 Last Taken Unknown] ergocalciferol (vitamin D2) [Vitamin D2] See Rx Instructions .ROUTE .COMPLEX 04/19/21 [History Confirmed 04/19/21 Last Taken Unknown] famotidine 20 mg PO QHS PRN 04/19/21 [History Confirmed 04/19/21 Last Taken Unknown] phenazopyridine 100 mg PO TID PRN 04/19/21 [History Confirmed 04/19/21 Last Taken Unknown] sulfamethoxazole-trimethoprim 1 tab PO BID 04/19/21 [History Confirmed 04/19/21 Last Taken Unknown] cefdinir 300 mg PO BID #20 cap 04/22/21 [Rx Last Taken Unknown] COURSE Hospital Course Hospital course: . Discharge diagnosis: . Time Spent with Patient Time attestation: Total time spent providing and/or coordinating discharge services: EXAM Constitutional Vitals: Temp Pulse Resp BP Pulse Ox 97.8 F 88 20 151/82 96 04/22/21 08:00 04/22/21 08:00 04/22/21 08:00 04/22/21 08:00 04/22/21 08:00 Discharge Data Data Completed and Pending Labs on day of discharge: Labs from last 24 hours 04/22/21 04/22/21 06:21 06:21 WBC 10.4 RBC 3.63 L Hgb 11.0 L Hct 32.9 L MCV 90.6 MCH 30.3 MCHC 33.4 RDW 14.7 H Plt Count 197 MPV 10.0 Neut % (Auto) 68.3 Lymph % (Auto) 16.2 [place] % (Auto) 14.4 H Eos % (Auto) 0.8 Baso % (Auto) 0.3 Lymph # (Auto) 1.68 [place] # (Auto) 1.49 H Eos # (Auto) 0.08 Baso # (Auto) 0.03 Absolute Neutrophils 7.08 Sodium 136 Potassium 3.6 Chloride 98 Carbon Dioxide 29 Anion Gap 9.0 BUN 13 Creatinine 1.0 GFR Calculation 68 Glucose 114 H Uric Acid 3.9 Calcium 8.7 Phosphorus 3.2 Magnesium 2.3 Total Bilirubin 0.2 Direct Bilirubin < 0.2 GGT 51 H AST 16 ALT 16 Alkaline Phosphatase 125 H Lactate Dehydrogenase 229 H Total Protein 6.4 Albumin 2.8 L Globulin 3.6 Albumin/Globulin Ratio 0.8 L Triglycerides 153 H Discharge Plan Patient/Caregiver Discharge Instructions Activity: increase activity as tolerated Diet: Consistent Carbohydrate Instructions: Cefdinir (By mouth), Sepsis (GEN) Activity Restrictions/Additional Instructions: Resume consistent carbohydrate diet Take all meals, up in chair, sitting at 90 degrees, to prevent aspiration. Increase activity as tolerated. Continue fall precautions. Free water restriction to 1500 cc a day due to low sodium secondary to SIADH Take all medication as directed. Continue antibiotic for additional 10 days. Your prescription was electronically transmitted to [facility] pharmacy Take your insurance cards and photo ID to pick remover your medication. Return to ER for fever, chills, uncontrolled pain, abdominal pain, inability to urinate or have a bowel movement, nausea and/or vomiting, swelling, redness, signs of infection, shortness of breath, chest pain, return of symptoms, or other acute symptom This discharge packet is provided to you to help keep you informed about your care. We want to ensure you get everything you need when you go home. You will also be receiving a call from us in a few days to follow up with you and see how you are doing since your discharge. This gives us a chance to listen to any concerns you maybe experiencing since you were discharged or any additional needs you may have, as well as providing us feedback on your care experience. We strive to always provide excellent care and thank you for your feedback and for choosing [facility]. Prescriptions: New cefdinir 300 MG capsule 300 mg PO BID Qty: 20 RF: 0 Continued divalproex 250 MG tablet,delayed release (DR/EC) 250 mg .Route TID RF: 0 omeprazole 20 MG capsule 40 mg PO DAILY RF: 0 pioglitazone 30 MG tablet 30 mg PO DAILY RF: 0 loratadine 10 MG tablet 10 mg PO DAILY RF: 0 fluticasone propionate 1 PUFF inhaler 110 mcg NARES BID RF: 0 escitalopram oxalate 20 MG tablet 20 mg PO DAILY RF: 0 aripiprazole 5 MG tablet 5 mg PO QDAY RF: 0 acetaminophen 325 MG tablet 650 mg PO Q6HP PRN (Reason: Pain) Qty: 30 RF: 0 ergocalciferol (vitamin D2) [Vitamin D2] 1,250 mcg (50,000 unit) capsule See Rx Instructions .ROUTE .COMPLEX RF: 0 acetaminophen-codeine 300-30 mg Tablet 2 tab PO Q6H PRN (Reason: Pain) RF: 0 sulfamethoxazole-trimethoprim 800-160 mg Tablet 1 tab PO BID RF: 0 famotidine 20 mg Tablet 20 mg PO QHS PRN (Reason: Acid Reflux) RF: 0 phenazopyridine 100 mg Tablet 100 mg PO TID PRN (Reason: uti) RF: 0 Januvia 100 mg Tablet 100 mg PO QDAY RF: 0 Discontinued meloxicam 15 mg Tablet 15 mg PO QDAY RF: 0 Follow Up Plan Follow up with: Gabriel Cole ARNP [Primary Care Provider] - 04/25/21 9:30 am (Check in at 9:30 am) Patient Disposition: Xfer Assisted Living Facility Prognosis: Fair Rehab Potential: Good I certify that the patient requires SNF services: No Overall status at discharge: patient is progressing back to baseline Discharge Orders: Discharge Order (Routine); Ordered 04/23/21 Ordered By: Adriano CONNELL VTE Deep Vein Thrombosis/Pulmonary Embolism Present on Admission: No
[2021-04-22] MEDS: SENNOSIDES/DOCUSATE SODIUM 1 TAB TABLET PO SCH (21:43)
[2021-04-23] MEDS: 0.9 % SODIUM CHLORIDE 10 ML SYRINGE IV SCH ×2 (05:54→15:24)
[2021-04-23] MEDS: INSULIN LISPRO 1 UNIT/0.01 ML UNIT SQ SCH ×2 (07:00→11:33)
[2021-04-23 07:09] LABS: Basophils # (Auto) 0.04 K/mcL (0.00-0.20); Basophils % (Auto) 0.4 % (0.0-2.0); Eosinophils # (Auto) 0.05 K/mcL (0.00-0.70); Eosinophils % (Auto) 0.5 % (0.0-7.0); Hematocrit 34.6 % (36.0-48.0); Hemoglobin 11.6 g/dL (12.0-15.0); Lymphocytes # (Auto) 1.27 K/mcL (1.50-4.80); Lymphocytes % (Auto) 11.9 % (15.0-49.0); Mean Cell Volume 89.9 fL (80.0-100.0); Mean Corpuscular HGB Conc 33.5 g/dL (31.0-36.0); Mean Platelet Volume 9.6 fL (7.4-10.4); Monocytes % (Auto) 14.1 % (1.0-12.0); Neutrophils % (Auto) 73.1 % (38.0-78.0); Platelet Count 240 K/mcL (140-440); RBC 3.85 M/mcL (4.00-5.20); Red Cell Distribution Width 14.6 % (11.5-14.5); WBC 10.7 K/mcL (4.5-11.0)
[2021-04-23 07:22] LABS: ALT/SGPT 18 U/L (<40); AST/SGOT 20 U/L (<32); Albumin 2.8 gm/dL (3.2-5.2); Albumin/Globulin Ratio 0.8 (1.0-2.3); Alkaline Phosphatase 117 U/L (39-117); Bilirubin,Direct < 0.2 mg/dL (0-0.3); Bilirubin,Total 0.2 mg/dL (0.1-1.0); Blood Urea Nitrogen 10 mg/dL (6-20); Calcium 8.8 mg/dL (8.6-10.4); Carbon Dioxide 29 mmol/L (22-30); Chloride 97 mmol/L (96-108); Globulin 3.3 gm/dL (2.2-3.7); Glomerular Filtration Rate 68; Glucose 153 mg/dL (70-105); Lactate Dehydrogenase 195 U/L (135-225); Phosphorous 3.2 mg/dL (2.5-4.5); Triglycerides 157 mg/dL (<150); Uric Acid 3.6 mg/dL (2.5-8.0)
--- NOTE | 2021-04-23 08:05 | Internal Med Progress Note ---
SUBJECTIVE Subjective Patient information: Note initiated : 04/22/21 at 8:03 am Service Date, if different from initiated Date: [] Patient: Inés Gardner a 45 y/o F admitted on 04/19/21 for Abdominal Pain. Chief Complaint: [] Interval history: History of present illness: Ms. Gardner is a 45 year old F with a history of developmental delay/DM type II, recurrent UTIs who lives along with her roommate and receives caregiver help from an agency. She has been doing well until last Thursday started experiencing weakness along with abdominal pain for which she was evaluated at PCP office. After initial work-up she was discharged on Bactrim. Her symptoms continue to get worse with increasing weakness, fever abdominal pain and was directed by PCP office again to the ER today. Initial work-up was consistent with acute pyelonephritis on imaging. Elevated creatinine at 2. Elevated white count/fever 101/sodium 127. Hospital service was consulted for admission. At the time of my evaluation patient is aler and able to answer most the questio n. Her abdominal discomfort is improved. She endorsed history as above. She is a poor historian in the background setting of developmental mental delay. She however denies diarrhea, chest pain, lightheadedness, dizziness, cough 6/-patient doing well. No overnight events. No concerns per staff. Abdominal pain much improved. Resting comfortably. On antibiotic coverage. Improved sepsis/endorgan dysfunction including downtrending creatinine at 1.4.White count 9 sodium 124, urine cultures pending. 04/21-patient clinically improving. No overnight events. This morning choked on x-rays. X-ray no evident aspiration or pneumonia. Transition to oral antibiotics. Cultures pending so far. Target total of 14 days antibiotics through 05/02. Anticipate discharge in 24 hours. /-patient doing a lot better. No overnight events. Sodium 136, potassium 3.6, creatinine down to 1. White count normalized. Negative cultures so far. All pain resolved. Continue additional 10 days oral third-generation cephalosporin for acute pyelonephritis on discharge. Case management coordinating discharge Constitutional Vitals: Vital Signs Temp Pulse Resp BP Pulse Ox 98.4 F 93 H 20 151/69 91 04/23/21 04:33 04/23/21 04:33 04/23/21 04:33 04/23/21 04:33 04/23/21 04:33 Period Temp Pulse Resp BP Sys/[place] Pulse Ox Last 24 Hr 97.7 F-99.5 F 92-107 18-20 110-151/61-78 91-95 Intake and Output 04/22/21 04/23/21 04/23/21 21:59 05:59 13:59 Intake Total 360 300 Output Total 2400 900 Balance -204 -600 Weight 107.501 kg Alert and cooperative Nonlabored breathing No anxiety Mentation at baseline Intake & Output: Intake & Output 04/22/21 04/23/21 04/23/21 21:59 05:59 13:59 Intake Total 360 300 Output Total 2400 900 Balance -2039 -600 Weight 107.501 kg Intake: Oral 360 300 Output: Void Amount 1400 900 Urine/Stool Mix 1000 Other: Meal Dinner Percent of Meal Consumed 50% Feeding Ability Independent Urine Appearance Clear Cloudy Urine Color Dark Yellow Bright Yellow Stool Size Moderate Stool Color Brown Stool Consistency Soft OBJ DATA Labs CBC & Chem 7: 04/23/21 06:06 04/23/21 06:06 Labs: Abnormal Lab Results 04/23/21 04/23/21 04/22/21 06:06 06:06 06:21 RBC 3.85 L Hgb 11.6 L Hct 34.6 L RDW 14.6 H Neut % (Auto) Lymph % (Auto) 11.[address] [place] % (Auto) 14.1 H Lymph # (Auto) 1.[address] [place] # (Auto) 1.50 H Sodium Chloride Anion Gap Creatinine Glucose 153 H 114 H Osmolality Calcium Phosphorus GGT 64 H 51 H Alkaline Phosphatase 125 H Lactate Dehydrogenase 229 H Total Protein Albumin 2.8 L 2.8 L Albumin/Globulin Ratio 0.8 L 0.8 L Triglycerides 157 H 153 H 04/22/21 04/21/21 04/21/21 06:21 05:45 05:45 RBC 3.63 L 3.55 L Hgb 11.0 L 10.6 L Hct 32.9 L 31.9 L RDW 14.7 H Neut % (Auto) Lymph % (Auto) 10.[address] [place] % (Auto) 14.4 H 18.9 H Lymph # (Auto) 0.[address] [place] # (Auto) 1.49 H 1.57 H Sodium 131 L Chloride Anion Gap 7.0 L Creatinine 1.2 H Glucose 123 H Osmolality Calcium 8.4 L Phosphorus GGT 45 H Alkaline Phosphatase Lactate Dehydrogenase Total Protein 5.7 L Albumin 2.5 L Albumin/Globulin Ratio 0.8 L Triglycerides 04/20/21 04/20/21 04/20/21 09:26 09:26 09:26 RBC 3.98 L Hgb Hct RDW Neut % (Auto) 84.8 H Lymph % (Auto) 5.[address] [place] % (Auto) Lymph # (Auto) 0.[address] [place] # (Auto) Sodium 124 L Chloride 89 L Anion Gap Creatinine 1.6 H Glucose 220 H Osmolality 278 L Calcium 8.4 L Phosphorus 2.2 L GGT 40 H Alkaline Phosphatase 120 H Lactate Dehydrogenase 267 H Total Protein Albumin 3.0 L Albumin/Globulin Ratio 0.9 L Triglycerides 182 H Meds: Medications Acetaminophen (Acetaminophen 325 Mg Tablet) 650 mg PO Q6HP PRN PRN Reason: PAIN/FEVER > 101 Last Admin: 04/22/21 21:42 Dose: 650 mg Documented by: Acetaminophen/Codeine Phosphate (Acetaminophen W/Codeine #3 1 Tablet) 2 tab PO Q6H PRN; Protocol PRN Reason: Pain Bisacodyl (Bisacodyl 10 Mg Supp.Rect) 10 mg UT Q2-3DAYS PRN PRN Reason: Constipation Dextrose (Dextrose 50% 50 Ml Vial) 0 ml IV UD PRN PRN Reason: Hypoglycemia Diagnostic Test (Pha) (Accu-Chek 1 Each Strip) 1 each FS ACHS [facility] Last Admin: 04/23/21 06:59 Dose: 1 each Documented by: Divalproex Sodium (Divalproex Sodium 250 Mg Tablet) 250 mg PO TID [facility] Last Admin: 04/22/21 21:42 Dose: 250 mg Documented by: Docusate Sodium (Docusate Sodium 100 Mg Capsule) 100 mg PO BID [facility] Last Admin: 04/22/21 21:51 Dose: Not Given Documented by: Escitalopram Oxalate (Escitalopram 20 Mg Tablet) 20 mg PO DAILY [facility] Last Admin: 04/22/21 08:54 Dose: 20 mg Documented by: Famotidine (Famotidine 20 Mg Tablet) 20 mg PO QHS PRN PRN Reason: Acid Reflux Fluticasone Propionate (Fluticasone Hfa 110mcg Inhaler) 1 puff INH BID [facility] Last Admin: 04/22/21 21:43 Dose: Not Given Documented by: Glucose (Dextrose 31 Gm Oral.Susp) 15 gm PO PRN PRN PRN Reason: Hypoglycemia Heparin Sodium (Porcine) (Heparin 5,000 Unit/Ml Vial) 5,000 unit SQ Q12 [facility] Last Admin: 04/22/21 21:43 Dose: 5,000 unit Documented by: Hydromorphone HCl (Hydromorphone 0.5 Mg/0.5 Ml Syringe) 0.25 - 0.5 mg IV Q4HP PRN; Protocol PRN Reason: Per Pain Protocol Acetaminophen (Ofirmev) 650 mg in 65 mls @ 130 mls/hr IV Q6HP PRN; Protocol PRN Reason: Per Pain Protocol/Fever > 101 Potassium Chloride 40 meq/ (Dextrose) 520 mls @ 130 mls/hr IV UD PRN PRN Reason: K+ = or < 3.5 Magnesium Sulfate (Magnesium Sulfate) 2 gm in 50 mls @ 50 mls/hr IV UD PRN PRN Reason: MG = or < 1.7 Ceftriaxone Sodium 2 gm/ (Dextrose) 50 mls @ 100 mls/hr IV Q24H [facility]; Protocol Last Infusion: 04/22/21 09:51 Dose: Infused Documented by: Insulin Human Lispro (Insulin Lispro 1 Unit/0.01 Ml Unit) 0 unit SQ ACHS [facility]; Protocol Last Admin: 04/23/21 07:00 Dose: Not Given Documented by: Iron Carb/Multivit/Roy/Folic Acid (Multivit,Ther Iron,Ca,Fa & Min 1 Tablet) 1 tab PO DAILY [facility] Last Admin: 04/22/21 08:54 Dose: 1 tab Documented by: Loratadine (Loratadine 10 Mg Tablet) 10 mg PO DAILY [facility] Last Admin: 04/22/21 08:54 Dose: 10 mg Documented by: Melatonin (Melatonin 3 Mg Tablet) 3 mg PO HSP PRN PRN Reason: Insomnia Omeprazole (Omeprazole 20 Mg Capsule) 40 mg PO DAILY [facility] Last Admin: 04/22/21 08:54 Dose: 40 mg Documented by: Ondansetron HCl (Ondansetron 4 Mg Odt Tablet) 4 mg SL Q4-6HP PRN; Protocol PRN Reason: Nausea And Vomiting Ondansetron HCl (Ondansetron 4 Mg/2 Ml Vial) 4 mg IV Q4-6HP PRN; Protocol PRN Reason: Nausea And Vomiting Pioglitazone HCl (Pioglitazone 15 Mg Tablet) 30 mg PO DAILY [facility] Last Admin: 04/22/21 08:55 Dose: 30 mg Documented by: Polyethylene Glycol (Polyethylene Glycol 3350 17 Gm Packet) 17 gm PO DAILYP PRN PRN Reason: Constipation Potassium Chloride (Potassium Chloride 20 Meq Packet) 40 meq PO DAILYP PRN PRN Reason: K+ < 3.5 Potassium/Phosphorus/Sodium (Neutra Phos 1 Packet) 2 packet PO DAILY PRN PRN Reason: PHOS <2.5 Last Admin: 04/20/21 12:03 Dose: 2 packet Documented by: Senna/Docusate Sodium (Sennosides/Docusate Sodium 1 Tab Tablet) 1 tab PO HS [facility] Last Admin: 04/22/21 21:43 Dose: Not Given Documented by: Sitagliptin Phosphate (Sitagliptin 100 Mg Tablet) 100 mg PO QDAY [facility] Last Admin: 04/22/21 08:54 Dose: 100 mg Documented by: Sodium Chloride (0.9 % Sodium Chloride 10 Ml Syringe) 10 ml IV Q8 [facility] Last Admin: 04/23/21 05:54 Dose: 10 ml Documented by: A/P Narrative A/P Narrative: * Severe sepsis with endorgan dysfunction-White count normalized. Clinical resolution noted on antibiotic coverage. Transition to oral antibiotics on discharge * A/c right pyelonephritis-continue antibiotic coverage through 05/02 * JAYME, secondary to sepsis endorgan dysfunction, creatinine down from 2-1.2 * SIADH/hyponatremia with elevated urine osmolality at 444. Sodium 127-> 124->131-> 136. 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 Continue therapies as tolerated * Full code Plan * Transition to oral antibiotics on discharge to continue through 05/02 * Pre-existing medical condition management as above * Free water restriction to 1.5 L a day * PT OT nutrition support Time Spent With Patient Time: Total time spent is greater than 50% in coordination of care (as documented) at patient's floor/unit and/or counseling patient: QUALITY VTE Deep Vein Thrombosis/Pulmonary Embolism Present on Admission: No
[2021-04-23] MEDS: sitaGLIPtin 100 MG TABLET PO SCH (08:21)
[2021-04-23] MEDS: LORATADINE 10 MG TABLET PO SCH (08:21)
[2021-04-23] MEDS: DOCUSATE SODIUM 100 MG CAPSULE PO SCH (08:21)
[2021-04-23] MEDS: PIOGLITAZONE 15 MG TABLET PO SCH (08:21)
[2021-04-23] MEDS: MULTIVIT,THER IRON,CA,FA & MIN 1 TABLET PO SCH (08:21)
[2021-04-23] MEDS: ESCITALOPRAM 20 MG TABLET PO SCH (08:22)
[2021-04-23] MEDS: ARIPIPRAZOLE 5 MG TABLET PO SCH (08:22)
[2021-04-23] MEDS: FLUTICASONE HFA 110MCG INHALER INH SCH (08:22)
[2021-04-23] MEDS: HEPARIN 5,000 UNIT/ML VIAL SQ SCH (08:22)
[2021-04-23] MEDS: DIVALPROEX SODIUM 250 MG TABLET PO SCH ×2 (08:22→15:24)
[2021-04-23] MEDS: OMEPRAZOLE 20 MG CAPSULE PO SCH (08:22)
[2021-04-23] MEDS: cefTRIAXone 2 GM in DEXTROSE 5% IN WATER 50 ML IV SCH (08:30)
== END 2021-04-23 16:42 | disposition home or self-care (01) | DRG 872 ==
LOC: ED 13:18 → MEDSUR 19:18
PROVIDERS: ADMIT Internal Medicine; ATTEND Internal Medicine